=== PATIENT | female | born 1995 | race Caucasian/White ===

== ENCOUNTER 2017-04-10 16:20 | Emergency (ER) | payer BC, OTHER ==
[~2017-04-10] VITALS: Ht 165.1 cm; Wt 58.3 kg
[2017-04-10 16:27] VITALS: Ht 165.1 cm; Wt 58.3 kg
[2017-04-10] MEDS ORDERED: BCPILLS PO (16:38)
[2017-04-10 17:41] VITALS: O2SAT 97
--- NOTE | 2017-04-10 18:18 | EMERGENCY ROOM VISIT NOTE ---
History Report prepared by Felipeibligia: Debby Higgins Under the Supervision of: Dr. Jonas lGez D.O. 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 The patient states that she goes to [facility] and is visiting her friend. She reports that her friends went to a tailgate without her today and she fell asleep in the bathroom and was found by EMS. She notes that she had 8 shots of vodka today since 1100. The patient denies any injury. 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 Review of Systems See HPI for pertinent positives & negatives. A total of 10 systems reviewed and were otherwise negative. Past Medical & Surgical Medical Problems: (1) No Known Active Medical Problems Family History No pertinent family history stated. Social History Alcohol Use: occasionally Marital Status: single Housing Status: lives with roommate Occupation Status: [employer] student Current/Historical Medications Scheduled Control Pills ( Control Pills), 1 TAB PO DAILY Allergies Coded Allergies: NO KNOWN DRUG ALLERGIES (Verified Allergy, Unknown, NONE, 04/10/17) Physical Exam Vital Signs Date Time Temp Pulse Resp B/P (MAP) Pulse Ox O2 Delivery O2 Flow Rate FiO2 04/10/17 17:41 97 Room Air 04/10/17 17:40 78 18 139/90 96 Room Air 04/10/17 16:27 36.6 106 18 147/91 94 Room Air Physical Exam CONSTITUTIONAL/VITAL SIGNS: Reviewed / noted above. GENERAL: Non-toxic in appearance. INTEGUMENTARY: Warm, dry, and [place]. HEAD: Normocephalic. EYES: without scleral icterus or trauma. ENT/OROPHARYNX: clear and moist. LYMPHADENOPATHY/NECK: Is supple without lymphadenopathy or meningismus. RESPIRATORY: Lungs clear and equal. CARDIOVASCULAR: Regular rate and rhythm. GI/ABDOMEN: Soft and nontender. No organomegaly or pulsatile mass. No rebound or guarding. Normal bowel sounds. EXTREMITIES: Warm and well perfused. BACK: No CVA tenderness. NEUROLOGICAL: Intact without focal deficits. PSYCHIATRIC: normal affect. MUSCULOSKELETAL: Normally developed with good muscle tone. Medical Decision & Procedures ED Course 1621: Previous medical records were reviewed. The patient was evaluated in room B4. A complete history and physical examination was performed. 181: The patient has a sober friend to take her home. 1820: On reevaluation, the patient is doing well. I discussed the results and findings with the patient. She verbalized agreement of the treatment plan. The patient was discharged home. Medical Decision There is no evidence of other toxic ingestions, trauma, anemia, hypoglycemia, head injury or intracranial pathology, meningitis, encephalitis, acute intrathoracic or abdominal pathology or other metabolic condition. This is a 21-year-old female who presents with a chief complaint of alcohol intoxication. The patient was found sleeping in the [place] at a doorman was brought here for evaluation. She admits to consuming some alcohol this afternoon. She states that she fell asleep and her friends went to a tailgate. She denies any complaints. Denies any trauma. She is awake, alert and oriented. She has a sober friend who came to pick her up. She is felt to be stable for discharge. She was advised not to consume alcohol. Medication Reconcilliation Current Medication List: was personally reviewed by me Impression Primary Impression: Alcohol use Additional Impression: Tired Scribe Attestation The scribe's documentation has been prepared under my direction and personally reviewed by me in its entirety. I confirm that the note above accurately reflects all work, treatment, procedures, and medical decision making performed by me. Departure Information Dispostion Home / Self-Care Forms HOME CARE DOCUMENTATION FORM, IMPORTANT VISIT INFORMATION Additional Instructions Avoid alcohol consumption. Problem Qualifiers
[2017-04-10 19:11] VITALS: BP 124/80; PULSE 75; TEMP 36.6; O2SAT 96
== END 2017-04-10 19:12 | disposition home or self-care (01) ==
LOC: EDBD 16:20 → C.EDB 16:22
DX: F10.129 Alcohol abuse with intoxication, unspecified (principal); R53.83 Other fatigue; Z79.3 Long term (current) use of hormonal contraceptives